=== PATIENT | male | born 1990 ===

== ENCOUNTER 2021-02-28 19:30 | Emergency (ER) | payer SELFPAY ==
[~2021-02-28] VITALS: Ht 185.4 cm; Wt 72.6 kg
[2021-02-28 20:40] LABS: BASOPHILS % (AUTO) 1 % (0-1); EOSINOPHILS % (AUTO) 2 % (1-7); LYMPHOCYTES % (AUTO) 10 % (22-44); MEAN CORPUSCULAR HEMOGLOBIN 32.2 pg (27.5-34.5); MEAN CORPUSCULAR HGB CONC 33.7 g/dL (33.2-36.2); MEAN PLATELET VOLUME 8.4 fL (7.4-10.4); MONOCYTES % (AUTO) 9 % (2-9); NEUTROPHILS % (AUTO) 79 % (42-75); PLATELET COUNT 241 x10^3/uL (130-400); RED BLOOD COUNT 4.19 x10^6/uL (4.38-5.82); RED CELL DISTRIBUTION WIDTH 13.6 % (9.4-14.8)
[2021-02-28 23:30] LABS: MICROSCOPIC INDICATED
[2021-02-28] MEDS ORDERED: AZITHROMYCIN 500 MG TABLET PO ONE (23:30)
[2021-02-28] MEDS ORDERED: CEFTRIAXONE 1,000 MG IM ONE (23:30)
[2021-03-01] MEDS ORDERED: AZITHROMYCIN 500 MG TABLET ONE (00:14)
[2021-03-01] MEDS ORDERED: CEFTRIAXONE 1,000 MG ONE (00:14)
[2021-03-01 00:25] VITALS: BP 111/59
== END 2021-03-01 01:01 | disposition home or self-care (01) ==
LOC: ED 03-01
DX: N45.2 Orchitis (principal); N45.1 Epididymitis; N50.89 Other specified disorders of the male genital organs
CPT/HCPCS: 36415; 76870; 81001; 85025; 87086; 87491; 87591; 96372; 99284; J0696